=== PATIENT | female | born 1980 | race Caucasian/White ===

== ENCOUNTER → 2017-01-25 | Outpatient (CLI) | payer OTHER ==
--- NOTE | 2017-01-25 20:40 | Diagnostic Imaging Report ---
Bilateral diagnostic mammogram. INDICATION: Left breast lump. The current study was also evaluated with a Computer Aided Detection (CAD) system. FINDINGS: The breasts are composed of heterogeneously dense parenchyma which may decrease mammographic sensitivity. Slightly prominent asymmetry in the medial periareolar region of the left breast demonstrates less prominent appearance of the exaggerated lateral view and no underlying lesion on focal compression evaluation. Overall symmetric appearance of the breasts seen. No suspicious calcifications. IMPRESSION: No mammographic evidence of malignancy. Ultrasound evaluation pending. ACR BI-RADS Category 0: Incomplete. (Needs additional imaging evaluation). Result letter will be mailed to the patient. Note: At least 10% of breast cancer is not imaged by mammography. Dictated by: Dictated on workstation # [id number]
--- NOTE | 2017-01-25 20:59 | Diagnostic Imaging Report ---
EXAM: Left breast ultrasound. INDICATION: Breast lump. FINDINGS: At the 11 o'clock zone, 4 cm from the nipple, there is a 7 x 3 x 7 mm cluster of cysts seen. Otherwise, in the four-quadrants and retroareolar region of the left breast, no significant abnormality is noted. IMPRESSION: A 7 mm cluster of cysts is seen at the palpable area with no suspicious lesion. Clinical followup recommended. BI-RADS 2. ACR BI-RADS Category 2: Benign findings. Result letter will be mailed to the patient. Note: At least 10% of breast cancer is not imaged by mammography. Dictated by: Dictated on workstation # [id number]
== END ==
LOC: RAD 14:28
PROVIDERS: ATTEND Nurse Practitioner Family
DX: N63 Unspecified lump in breast (principal)
CPT/HCPCS: 76641; 77066

== ENCOUNTER 2021-11-23 23:22 | Emergency (ER) | payer OTHER ==
--- NOTE | 2021-11-23 23:34 | ED Lower Extremity ---
General Chief Complaint: Lower Extremity Stated Complaint: RT BIG TOE PAIN Source: patient, police History of Present Illness Date Seen by Provider: Nov 23, 2021 Time Seen by Provider: 23:24 Initial Comments 41 yo female brought in by lawn mower for pain and abrasion to left great toe. She denies other medical problems. She states she does not want to be here and does not feel it is necessary because it is just a scrape. She is able to walk without difficulty to the room. She rates her pain 7 out of 10. She is unsure of her last tetanus shot. She was wearing her socks and shoes when she was struggling against law enforcement and reports she got a scrape to her big toe because of the struggle. She has not taken anything for pain. Initially she told the officer it was her right big toe but when she got to the room she showed us her left big toe. Onset: just prior to arrival Severity: moderate Pain/Injury Location: left 1st toe Modifying Factors: Worse With Movement Allergies and Home Medications Allergies Coded Allergies: Penicillins (Verified Allergy, Unknown, 11/23/21) Patient Home Medication List Home Medication List Reviewed: Yes Review of Systems Constitutional: no symptoms reported EENTM: no symptoms reported Musculoskeletal: see HPI Skin: see HPI Psychiatric/Neurological: Denies Numbness, Denies Weakness Past Qyvdwmj-Alfqjj-Ohhmba Hx Patient Social History Tobacco Use?: Yes Tobacco type used: Cigarettes Substance use?: Yes Substance type: Methamphetamine, Marijuana Immunizations Up To Date Tetanus Booster (TDap): More than 5yrs Physical Exam Vital Signs Vital Signs - First Documented 11/23/21 23:25 Pulse 119 Resp 18 B/P (MAP) 115/79 (91) Pulse Ox 100 O2 Delivery Room Air Capillary Refill : Height, Weight, BMI Height: '" Weight: lbs. oz. kg; BMI Method: General Appearance: no apparent distress, other (twitchy and acting as though she was "tweaking" from methamphetamines) Neck: non-tender, full range of motion, supple Cardiovascular: normal peripheral pulses Feet: left foot normal range of motion, left foot abrasions/lacerations (2 mm superficial abrasion to left big toe over PIP joint), left foot other (complaint of pain with palpation of the left big toe where she has small superficial abrasion. No bruising, swelling, bleeding. Normal range of motion. No nail injury) Neurologic/Tendon: normal sensation, normal motor functions, normal tendon functions Neurologic/Psychiatric: alert Skin: normal color, warm/dry Progress/Results/Core Measures Results/Orders Vital Signs/I&O 11/23/21 23:25 Pulse 119 Resp 18 B/P (MAP) 115/79 (91) Pulse Ox 100 O2 Delivery Room Air Progress Progress Note : Progress Note discussed with patient that I could give her medicine for pain and inflammation and obtain xray of the toe to check for bony injury since she reports her pain is 7 out of 10. Patient asked who would be paying for the xray, because if it was the police she wanted to make them pay but if she had to pay she did not have the money and did not feel it was necessary. I told her I did not know who would be paying for her visit. She said yes she would agree to do the xray and medicine for pain. Before I could put any orders in the computer, the officer came out of room and said she refused everything now. Discharge with instructions for wound care and pain control for inflammation and contusion. Departure Impression Primary Impression: Abrasion, left great toe, initial encounter Additional Impression: Pain of left great toe Disposition: HOME, SELF-CARE Condition: Stable Departure-Patient Inst. Decision time for Depature: 23:33 Referrals: ASHISH BOCANEGRA DO (PCP) Primary Care Physician MARISOL QUAN APRN (Family) Primary Care Physician Patient Instructions: Abrasions ED, Toe Injury (DC) Add. Discharge Instructions: Use Ibuprofen 600 mg (3 of the over the counter 200 mg pills) every 8 hours as needed for pain and inflammation. Keep the abrasion and scrape on the toe clean with soap and water. May apply antibiotic ointment 2 to 3 times a day as needed to help prevent infection. Follow up with clinic for continued concerns Medically stable and clear to go with law enforcement for incarceration All discharge instructions reviewed with patient and/or family. Voiced understanding. ROBSON GUERRERO MD Nov 23, 2021 23:34
[2021-11-23 23:36] VITALS: BP 115/79
== END 2021-11-23 23:36 | disposition home or self-care (01) ==
LOC: EDUNIT# 23:22 → ER FS 23:23
DX: S90.412A Abrasion, left great toe, initial encounter (principal); Z72.0 Tobacco use; X58.XXXA Exposure to other specified factors, initial encounter
CPT/HCPCS: 99283

== ENCOUNTER 2023-02-01 00:41 | Emergency (ER) | payer OTHER ==
[~2023-02-01] VITALS: Ht 154.9 cm; Wt 52.5 kg
--- NOTE | 2023-02-01 00:59 | ED Upper Extremity ---
General Stated Complaint: MEDICAL CLEARANCE History of Present Illness Date Seen by Provider: Feb 01, 2023 Time Seen by Provider: 00:50 Initial Comments 42-year-old female with PMH of gastritis/asthma/methamphetamine and marijuana abuse, is brought in by police after being arrested and prior to going to alf, for clearance of a right upper extremity injury. Patient fell from the back of the truck yesterday morning, and has pain in her right forearm and wrist. Patient thinks she might have fractured it. Patient has not had any x-rays or clinic follow-up since the injury. Denies sensory loss, head strike, LOC. Patient admits to doing methamphetamine and marijuana today. Allergies and Home Medications Allergies Coded Allergies: Penicillins (Verified Allergy, Unknown, 11/23/21) Patient Home Medication List Home Medication List Reviewed: Yes Review of Systems Constitutional: no symptoms reported EENTM: no symptoms reported Respiratory: no symptoms reported Cardiovascular: no symptoms reported Gastrointestinal: no symptoms reported Genitourinary: no symptoms reported Musculoskeletal: joint pain, muscle pain, muscle stiffness Skin: no symptoms reported Psychiatric/Neurological: No Symptoms Reported Past Jxlaptm-Slshyg-Yhaldz Hx Immunizations Up To Date Tetanus Booster (TDap): More than 5yrs Physical Exam Vital Signs Vital Signs - First Documented 02/01/23 00:50 Temp 36.9 Pulse 111 Resp 20 B/P (MAP) 147/80 (102) Pulse Ox 100 O2 Delivery Room Air Capillary Refill : Height, Weight, BMI Height: '" Weight: lbs. oz. kg; BMI Method: General Appearance: WD/WN, no apparent distress HEENT: PERRL/EOMI Neck: non-tender, full range of motion Cardiovascular: regular rate, rhythm Respiratory: lungs clear Back: normal inspection, no vertebral tenderness Shoulder: normal inspection, non-tender, no evidence of injury, normal ROM Elbow/Forearm: normal inspection, normal ROM, Right, bone tenderness (Tenderness to touch in the lower third of the forearm), limited ROM (Due to pain), swelling (Mild swelling of the lower part of forearm) Wrist: Yes normal inspection, Yes normal ROM, Yes soft tissue tenderness, Yes swelling Hand: normal inspection, non-tender, no evidence of injury, normal ROM, Right Neurologic/Tendon: normal sensation, normal motor functions, normal tendon functions, responds to pain Neurologic/Psychiatric: pst supervisor II-XII nml as tested, no motor/sensory deficits, alert, normal mood/affect, oriented x 3 Skin: normal color, warm/dry Lymphatic: no adenopathy Progress/Results/Core Measures Results/Orders My Orders Orders - LYNDSEY OLIVEROS MD Forearm 2 View Right (02/01/23 00:58) Wrist 3 View Right (02/01/23 00:58) Vital Signs/I&O 02/01/23 00:50 Temp 36.9 Pulse 111 Resp 20 B/P (MAP) 147/80 (102) Pulse Ox 100 O2 Delivery Room Air Progress Progress Note : Progress Note 1. CLEARANCE FOR CARE HOME/ RIGHT FOREARM CONTUSION: - XR RIGHT FOREARM AND WRIST: no fracture - Toradol im STAT - Follow up with PCP and/or Ortho in the next 7 days - Advised Ibuprofen as needed forpain. - Advised ice application for the first 24 hrs. - Medically cleared to go to alf Diagnostic Imaging Diagonstic Imaging: Xray Departure Impression Primary Impression: Contusion of forearm, right Additional Impression: Medical clearance for incarceration Disposition: [address]/LAW ENFORCE Condition: Stable Departure-Patient Inst. Referrals: ASHISH BOCANEGRA DO (PCP) Primary Care Physician MARISOL QUAN APRN (Family) Primary Care Physician Patient Instructions: Minor Contusion ED, Contusion (DC), Taking Care of Bruises Add. Discharge Instructions: - Follow up with PCP and/or Ortho in the next 7 days - Advised Ibuprofen as needed for pain. - Advised ice application for the first 24 hrs. - Medically cleared to go to alf LYNDSEY OLIVEROS MD Feb 01, 2023 00:59
[2023-02-01] MEDS ORDERED: KETOROLAC 30 MG/ML VIAL IM ONE (01:30)
[2023-02-01 01:45] VITALS: BP 143/76
[2023-02-01] MEDS ORDERED: Omeprazole (02:22)
--- NOTE | 2023-02-01 06:46 | Diagnostic Imaging Report ---
Indication: Injury, pain. Findings: 2 view right forearm performed. No fracture, dislocation or acute articular irregularity. Impression: No acute-appearing abnormality. Dictated by: Dictated on workstation # [id number]
--- NOTE | 2023-02-01 06:49 | Diagnostic Imaging Report ---
Indication: Injury with pain. Findings: 3 view right wrist performed. No fracture, dislocation, foreign body or gas. Impression: Unremarkable 3 view right wrist series. Dictated by: Dictated on workstation # [id number]
== END 2023-02-01 01:45 ==
LOC: EDUNIT# 00:41 → ER FS 00:44
DX: S50.11XA Contusion of right forearm, initial encounter (principal); Z02.79 Encounter for issue of other medical certificate; Z28.310 Unvaccinated for COVID-19; W17.89XA Other fall from one level to another, initial encounter; Y92.812 Truck as the place of occurrence of the external cause
CPT/HCPCS: 73090; 73110